=== PATIENT | male | born 1995 | race Caucasian/White ===

== ENCOUNTER 2023-12-18 19:41 | Emergency (ER) | payer SELFPAY ==
[~2023-12-18] VITALS: Ht 190.5 cm; Wt 90.0 kg
[2023-12-18 20:16] LABS: BASO # 0.03 K/mm3 (0.02-0.10); EOS # 0.05 K/mm3 (0.04-0.40); EOS % 0.4 % (0.0-4.0); HEMATOCRIT 42.9 % (42.0-52.0); LYMPH# 3.09 K/mm3 (1.50-4.00); MEAN CELL VOLUME 90 fl (78-100); MEAN CORPUSCULAR HEMOGLOBIN 32 pg (27-31); MEAN CORPUSCULAR HGB CONC 35 g/dL (33-37); MEAN PLATELET VOLUME 9.2 fl (7.4-10.4); MONO # 1.15 K/mm3 (0.20-0.80); NEU # 7.82 K/mm3 (1.40-6.50); PLATELET COUNT 264 K/mm3 (130-400); RED BLOOD COUNT 4.76 M/mm3 (4.20-5.60); RED CELL DISTRIBUTION WIDTH 11.6 % (11.5-14.5); WHITE BLOOD COUNT 12.2 K/mm3 (4.8-10.8)
[2023-12-18 20:23] LABS: ALBUMIN 4.7 g/dL (3.5-5.0)
[2023-12-18 20:25] LABS: CALCIUM 9.4 mg/dL (8.3-10.5)
[2023-12-18 20:26] LABS: TOTAL PROTEIN 7.3 g/dL (6.4-8.3)
[2023-12-18 20:28] LABS: TOTAL BILIRUBIN 0.7 mg/dL (0.2-1.2)
[2023-12-18] MEDS ORDERED: fentaNYL 100 MCG/2 ML VIAL IV ONE ×3 (20:30→22:00)
[2023-12-18 20:34] LABS: PROTHROMBIN TIME 11.1 SECONDS (9.0-12.0)
[2023-12-18] MEDS ORDERED: NS 1,000 ML IV SCH (21:00)
[2023-12-18] MEDS ORDERED: Orphenadrine 60 MG/2ML AMP IV ONE (21:15)
[2023-12-18] MEDS ORDERED: Lidocaine 4% Topical Patch TP ONE (22:15)
[2023-12-18] MEDS ORDERED: HYDROcodone/Acetaminophen 10-325 MG TAB PO ONE (22:15)
[2023-12-18] MEDS ORDERED: Potassium Bicarbonate/Citrate 20 MEQ Effervescent TAB PO ONE (22:15)
[2023-12-18] MEDS ORDERED: ZOFRAN ODT4 MG PO (22:24)
[2023-12-18] MEDS ORDERED: TIZANIDINE2 MG PO (22:24)
[2023-12-18] MEDS ORDERED: NORCO 325 MG-51 TA1 PO (22:24)
[2023-12-18] MEDS ORDERED: Home HYDROcodone/Acetaminophen 5/325 MG #4 TABS/PACK PO PRN (22:30)
[2023-12-18] MEDS ORDERED: Ondansetron 4 MG/2 ML VIAL IV ONE (22:45)
[2023-12-18 23:44] VITALS: BP 132/69
[2023-12-19] MEDS ORDERED: Home HYDROcodone/Acetaminophen 5/325 MG #4 TABS/PACK PO SCH
== END 2023-12-18 23:13 | disposition home or self-care (01) ==
LOC: ED 19:41
PROVIDERS: Physician Assistant
DX: S06.0XAA Concussion with loss of consciousness status unknown, initial encounter (principal); S22.011A Stable burst fracture of first thoracic vertebra, initial encounter for closed fracture; S43.101A Unspecified dislocation of right acromioclavicular joint, initial encounter; R41.82 Altered mental status, unspecified; V18.4XXA Pedal cycle driver injured in noncollision transport accident in traffic accident, initial encounter; Y93.55 Activity, bike riding
CPT/HCPCS: J2360; J2405; J3010; J7030